=== PATIENT | female | born 1990 | race Two or more races ===

== ENCOUNTER 2019-12-09 07:18 | Inpatient (IN) | payer OTHER ==
[~2019-12-09] VITALS: Ht 157.5 cm; Wt 3.6 kg
[2019-12-09] MEDS ORDERED: PRENATAL TABLE1 EACH PO (07:58)
== END 2019-12-12 13:30 | disposition home or self-care (01) | DRG 788 ==
LOC: LDR 07:18 → O/R 09:29 → OB/GYN 11:01
PROVIDERS: ADMIT Obstetrics & Gynecology
PROC: 4A1HXCZ Monitoring of Products of Conception, Cardiac Rate, External Approach (ICD-10-PCS; 2019-12-09)
PROC: 10D00Z1 Extraction of Products of Conception, Low, Open Approach (ICD-10-PCS; principal; 2019-12-09 09:15)
DX: O33.8 Maternal care for disproportion of other origin (principal); Z3A.39 39 weeks gestation of pregnancy; Z37.0 Single live birth